=== PATIENT | female | born 1995 | race Caucasian/White ===

== ENCOUNTER 2017-09-09 19:09 | Inpatient (IN) | payer OTHER, MEDICAID ==
[2017-09-09] MEDS ORDERED: Sodium Chloride 0.9% 10 ML Syringe FLUSH PRN (19:50)
[2017-09-09] MEDS ORDERED: Oxytocin 10 Units/1 ML SDV IM PRN (20:07)
[2017-09-09] MEDS ORDERED: Acetaminophen/Codeine 300-30 MG Tab PO PRN (20:26)
[2017-09-09] MEDS ORDERED: Witch Hazel Medicated Pads 40/Jar TOP PRN (20:26)
--- NOTE | 2017-09-09 20:45 | PCM.DEL ---
L & D Note - General Info Date of Service: 09/09/17 - Delivery Note Labor: Spontaneous Delivery Outcome: Livebirth Delivery Mode: Spontaneous Presentation: Right Occiput Anterior (ANTHONY) Nuchal Cord: None Anesthesia Type: None Amniotic Fluid Description: Clear Episiotomy Type: None Laceration: None Placenta: Intact, Spontaneous Resuscitation Needed: No [place]: Bulb Syringe - General Info Date of Service: 09/09/17 Admission Dx/Problem (Free Text): 21-year-old G4 para 3 with 2 spontaneous AB with an 1 living comes in 37+ weeks in spontaneous labor. She had AROM will she was here was clear. She did not have a group B strep that is yet because she had not been tested in the clinic. In 2013 she was group B positive. She had a normal vaginal delivery without any complications. Blood loss was probable less than 500 mL. No nuchal cord. - Patient Data Med Orders - Current: Current Medications Acetaminophen/Codeine Phosphate (Tylenol With Codeine No.3 300mg/30mg) 1 tab PO Q4H PRN PRN Reason: Pain (moderate 4-6) Ibuprofen (Motrin) 800 mg PO Q8H KAREN Nicotine (Habitrol) 21 mg TRDERM DAILY KAREN Multivit/Folic Acid/Iron (-U) 1 each PO DAILY KAREN Witch Viky (Tucks) 1 pad TOP ASDIRECTED PRN PRN Reason: Hemorrhoids - Exam General: Alert, Oriented. No: Cooperative Lungs: Normal Respiratory Effort Extremities: No Pedal Edema - Problem List & Annotations (1) Vaginal delivery SNOMED Code(s): 004065409 Code(s): O80 - ENCOUNTER FOR FULL-TERM UNCOMPLICATED DELIVERY Status: Acute Current Visit: Yes - Problem List Review Problem List Initiated/Reviewed/Updated: Yes - My Orders Last 24 Hours: My Active Orders 09/09/17 20:26 May Shower [RC] ASDIRECTED Up ad Rosanna [RC] ASDIRECTED Acetaminophen/Codeine [Tylenol with Codeine No.3 300MG/30MG] 1 tab PO Q4H PRN Witch Viky [Tucks] 1 pad TOP ASDIRECTED PRN Assess Lochia [WOMSER] Per Unit Routine Assess Uterine Involution [WOMSER] Per Unit Routine Resuscitation Status Routine 09/09/17 20:27 Patient Status [ADT] Routine Vital Signs [RC] PFP Ice Therapy [OM.PC] Per Unit Routine Perineal Care [OM.PC] Per Unit Routine Sitz Bath [OM.PC] Per Unit Routine 09/09/17 20:30 Ibuprofen [Motrin] 800 mg PO Q8H Nicotine [Habitrol] 21 mg TRDERM DAILY 09/10/17 05:11 HEMOGLOBIN/HEMATOCRIT,HH [HEME] AM 09/10/17 09:00 Vit/FA/Fe Fumarate [-U] 1 each PO DAILY - Plan Plan:: Normal orders. Patient will get ibuprofen 800 mg every 8 hours round the clock. She has a morphine allergy. She says she can take Tylenol No. 3. That 'll be ordered when necessary. I did call [facility] asked them what to do about the beta strep status. I did order beta strep culture on her antepartum. They have not called the back thus far.
[2017-09-09] MEDS: Ibuprofen 800 MG Tab PO SCH (21:26)
[2017-09-09] MEDS: Nicotine 21 MG/24 Hr Patch TRDERM SCH (21:29)
[2017-09-10] MEDS: Ibuprofen 800 MG Tab PO SCH ×3 (05:10→20:13)
[2017-09-10] MEDS: Acetaminophen/Codeine 300-30 MG Tab PO PRN ×2 (08:49→18:41)
[2017-09-10] MEDS: Prenatal Multivitamin with Calcium/Folic Acid/Fe Fumarate Cap PO SCH (09:05)
[2017-09-10] MEDS: Nicotine 21 MG/24 Hr Patch TRDERM SCH (09:05)
[2017-09-11] MEDS: Ibuprofen 800 MG Tab PO SCH (04:19)
--- NOTE | 2017-09-11 08:11 | PN ---
DATE SEEN: 09/10/2017 SUBJECTIVE: Chante Sanders is a 21-year-old 2, para 2, female 1 day . She had an urgent delivery. Group B testing had been performed, she did not have an OB visit for several weeks duration, admonished accordingly with her most recent visit for gastroenteritis. She had been expected to be seen on 09/08/2017. Came in labor today, urgent delivery of ruptured membranes, time duration noted. Doing well. Up ambulating, minimal pain, moderate discomfort. OBJECTIVE: Hemoglobin 14.2. On exam U-2 tone satisfactory. Perineum intact. ASSESSMENT: day #1, no problems. PLAN: Routine care. Close observation. Adequate fluids and hydration and analgesics as appropriate. /[id number] KIA/RUSSELL
[2017-09-11 08:25] VITALS: BP 97/51
--- NOTE | 2017-09-11 08:42 | PN ---
DATE SEEN: 09/10/2017 HISTORY OF PRESENT ILLNESS: Chante Sanders is a 21-year-old female, 2, para 2, day #1. She had an urgent delivery last evening. 37 weeks gestation. She is one day , doing well. Moderate cramps, discomfort. Moderate flow, being followed closely. PHYSICAL EXAMINATION: U-4, tone satisfactory, perineum intact. Hemoglobin 10.4, hematocrit 30.9. ASSESSMENT: day #1, no problems. PLAN: Routine care, close observation. Analgesics as appropriate. /[id number] KIA/RUSSELL
[2017-09-11] MEDS: Prenatal Multivitamin with Calcium/Folic Acid/Fe Fumarate Cap PO SCH (10:18)
[2017-09-11] MEDS: Nicotine 21 MG/24 Hr Patch TRDERM SCH (10:18)
--- NOTE | 2017-09-12 03:49 | DISCH ---
DISCHARGE DATE: 09/11/2017 HOSPITAL COURSE: Chante Sanders is a 21-year-old 2, para 2 female, 2 days . Up ambulating, doing well. Minimal cramps and discomfort. Moderate discomfort. No particular complaints or concerns. PHYSICAL EXAMINATION: U-2 tone satisfactory. Perineum intact. day 2. PLAN: Discharge home with lengthy instructions, vitamins, ibuprofen 800 mg q.i.d., limitations and restrictions, close observation, 6-week followup. /[id number] KIA/RUSSELL
== END 2017-09-11 11:33 | disposition home or self-care (01) | DRG 775 ==
LOC: FB.OB 19:38 → EDSTATUS 19:43
PROVIDERS: ADMIT Family Medicine; ATTEND Family Medicine
PROC: 10E0XZZ Delivery of Products of Conception, External Approach (ICD-10-PCS; principal; 2017-09-09)
PROC: 10907ZC Drainage of Amniotic Fluid, Therapeutic from Products of Conception, Via Natural or Artificial Opening (ICD-10-PCS; 2017-09-09)
DX: O80 Encounter for full-term uncomplicated delivery (principal); Z3A.37 37 weeks gestation of pregnancy; Z37.0 Single live birth; Z88.5 Allergy status to narcotic agent
CPT/HCPCS: 36415; 59409; 85014; 85018; 87081; A9270-GY; J2590; J7050

== ENCOUNTER 2019-02-13 07:53 | Emergency (ER) | payer OTHER, MEDICAID ==
--- NOTE | 2019-02-13 08:55 | EDM.PDOC ---
ED HPI GENERAL MEDICAL PROBLEM - General Chief Complaint: General Stated Complaint: TOOTH PAIN Time Seen by Provider: 02/13/19 08:30 Source of Information: Reports: Patient History Limitations: Reports: No Limitations - History of Present Illness INITIAL COMMENTS - FREE TEXT/NARRATIVE: 23-year-old female with over 1 week of left lower dental pain. She has been seen by dentist in [place] and was placed on amoxicillin about a week ago she was initially set up to get a root canal and the pain has been continual and requiring doses of ibuprofen and Tylenol and she had called to try to get this changed. This Monday she developed swelling over the left lower jaw which has worsened with time as has the pain worsened with time and she has been calling the past few days to try to get a sooner appointment to just get the tooth pulled. Apparently she is to see this dentist tomorrow for that purpose. She rates pain as a 9/10 at this point. It is a sharp and shooting pain all over the left side of her head and throbbing as well. She's had no fever. She's had no nausea or vomiting. She's had no trouble swallowing. She has no swelling under her tongue. There are no other associated signs or symptoms. There are no other modifying factors. 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: Reports: Acetaminophen, NSAIDS L jaw Pain Score (Numeric/FACES): 7 - Related Data Allergies Allergy/AdvReac Type Severity Reaction Status Date / Time morphine Allergy Hives Verified 02/13/19 08:01 Home Meds: Home Meds Amoxicillin 500 mg TID 02/13/19 [History] Clindamycin HCl 450 mg PO TID 10 Days #90 capsule 02/13/19 [Rx] Hydrocodone/Acetaminophen [[place] 5-325 Tablet] 1 - 2 tab PO Q6H PRN #10 tablet 02/13/19 [Rx] Past Medical History 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: [id number] Neurological History: Reports: Migraines Psychiatric History: Reports: 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), Anxiety, Depression - Infectious Disease History Infectious Disease History: Reports: Chicken Pox, Shingles - Past Surgical History HEENT Surgical History: Reports: Oral Surgery ([place] tooth extraction) GI Surgical History: Reports: Appendectomy Social & Family History - Family History HEENT: Reports: Other (See Below) Other HEENT Family History: brother and son had tubes in ears Cardiac: Reports: Hypertension, [place], Pacemaker, Stent GI: Reports: Chronic Constipation, GERD, Hiatal Hernia OBGYN: Reports: Endometriosis, Recurrent Spontaneous Musculoskeletal: Reports: Arthritis, Back pain, Chronic, Fibromyalgia, Gout, Osteoarthritis Neurological: Reports: Migraines Psychiatric: Reports: Anxiety, Learning Disability Endocrine/Metabolic: Reports: Hyperparathyroidism 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 ED ROS GENERAL - Review of Systems Review Of Systems: See Below Constitutional: Reports: No Symptoms HEENT: Reports: Dental Pain, Other (Left facial/jaw swelling) Respiratory: Reports: No Symptoms Cardiovascular: Reports: No Symptoms Endocrine: Reports: No Symptoms GI/Abdominal: Reports: No Symptoms : Reports: No Symptoms Musculoskeletal: Reports: No Symptoms Skin: Reports: No Symptoms Neurological: Reports: Headache Hematologic/Lymphatic: Reports: No Symptoms Immunologic: Reports: No Symptoms ED EXAM, GENERAL - Physical Exam Exam: See Below Exam Limited By: No Limitations General Appearance: Alert, WD/WN, Moderate Distress (Pain) Eye Exam: Bilateral Eye: EOMI, Normal Inspection, PERRL Ears: Normal External Exam, Hearing Grossly Normal Nose: Normal Inspection, Normal Mucosa, No Blood Throat/Mouth: Normal Voice, No Airway Compromise Head: Facial Swelling (Left lower jaw swelling/induration. Tender to palpation) Neck: Normal Inspection, Supple, Non-Tender, Full Range of Motion Respiratory/Chest: No Respiratory Distress, Lungs Clear, Normal Breath Sounds, No Accessory Muscle Use, Chest Non-Tender Cardiovascular: Normal Peripheral Pulses, Regular Rate, Rhythm, No JVD Peripheral Pulses: 2+: Radial (L), Radial (R) GI/Abdominal: Normal Bowel Sounds, Soft, Non-Tender, No Organomegaly, No Distention Back Exam: Normal Inspection Extremities: Normal Inspection, Normal Range of Motion, Non-Tender, No Pedal Edema, Normal Capillary Refill Neurological: Alert, Oriented, CN II-XII Intact, Normal Cognition, No Motor/ Sensory Deficits Skin Exam: Warm, Dry, Intact, Normal Color, No Rash Course - Vital Signs Last Recorded V/S: Last Vital Signs Temp 36.8 C 02/13/19 07:55 Pulse 88 02/13/19 07:55 Resp 18 02/13/19 07:55 BP 111/75 02/13/19 07:55 Pulse Ox 100 02/13/19 07:55 - Re-Assessments/Exams Free Text/Narrative Re-Assessment/Exam: 02/13/19 08:59: Patient has a history of heroin addiction in the past. I discussed at length with the patient the risk of prescribing her narcotic type pain medications. She certainly has indication for acute pain management at this point, however, she is also at risk for falling off of sobriety. I am willing to give her a small number of pain medication via prescription for acute pain management and she would want this despite the risk described above. I will also change her antibiotics to clindamycin. She is advised to keep the dental appointment tomorrow. Departure - Departure Time of Disposition: 09:03 Disposition: Home, Self-Care 01 Condition: Good Clinical Impression: Dental abscess, Facial cellulitis - Discharge Information *PRESCRIPTION DRUG MONITORING PROGRAM REVIEWED*: Yes (Patient with no narcotic prescriptions over the past year. All outlying states were checked.) *COPY OF PRESCRIPTION DRUG MONITORING REPORT IN PATIENT SALVADOR: No Prescriptions: Clindamycin HCl 450 mg PO TID 10 Days #90 capsule Hydrocodone/Acetaminophen [[place] 5-325 Tablet] 1 - 2 tab PO Q6H PRN #10 tablet PRN Reason: Moderate to severe pain Referrals: Fam White MD [Primary Care Provider] -
[2019-02-13 09:12] VITALS: BP 106/72
== END 2019-02-13 09:22 | disposition home or self-care (01) ==
LOC: FB.ED 07:53
DX: K04.7 Periapical abscess without sinus (principal); L03.211 Cellulitis of face; F17.210 Nicotine dependence, cigarettes, uncomplicated; Z88.5 Allergy status to narcotic agent; Z79.899 Other long term (current) drug therapy
CPT/HCPCS: 99282